=== PATIENT | male | born 1970 | race Caucasian/White ===

== ENCOUNTER 2022-01-22 10:42 | Outpatient (RCR) | payer BC, SELFPAY ==
--- NOTE | 2022-01-22 11:28 | PT.OPEX ---
[facility] Eval PT [facility] Outpatient Eval Start: 01/22/22 07:17 Freq: Status: Active Protocol: Document 01/22/22 11:24 SANDRO (Rec: 01/22/22 11:28 CLAnca [id number]) E-signed By Priscilla Hayes PT Physical Therapy Outpatient Evaluation Insurance Information Insurance Name [employer] Medical Diagnosis BPPV Treating Diagnosis BPPV Referring MD Samira Cho OFFICE ASSISTANT RECEPTIONIST Subjective Subjective Hunter reports having symptoms on Jan 17. I just backed up my truck, I looked down at the floor and tried to pick something up and I felt a weird sensation in my head, like a twirling/twisting. Then I felt completely exhausted. I went to sit down and I looked to the Lt and I felt la twirling sensation and feeling really nauseous. I knew something wasn't right. I went to the clinic. They checked my blood pressure, did an EKG and I had another episode with moving backward, and started sweating. EKG was fine and DX with noted Ny of vertigo. No accident or incident, no changes in medication. 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 Pain Comments NA Vertigo self score (based on 0 -10 scale with 0 being vertigo free) 7/10 when it happened, but 0/10 since Jan 17. Symptom free for the last 5 days Date of Last Physician Visit 01/18/22 Current Work Status Director Business Development Preferred Name [employer] Precautions Treatment Precautions/Contraindications Hernia Therapy Limitations/Systems Review Not Limited Objective Range of Motion CX AROM is WNL Palpation Alar ligament intact Balance & Gait No deviation Assessment Assessment/Impression 51 yo male with DX of BPPV - Vertigo. He denies having any symptoms in the past 5 days. He presents with good CX AROM and normal posture. All visual tracking was normal. Vergence testing was normal. Assessment of carmen post loops were negative for nystagmus or subjective report of vertigo/ dizziness. (-) Dolomite-Hallpike bilateral. We did complete positional maneuver for Rt BPPV (per his reported symptoms it was most likely this region of the vestibular system) with complete absence of Ny or subjective vertigo responces. He will be placed on HOLD for 2 weeks encase symptoms return. In this case we will assess for vestibular canal involvement and he would benefit from continued skilled physical therapy, if so. Thank you for this referral. Plan of Care Rehabilitation Potential Good Physical Therapy Goals 1. Complete an evaluation for vertigo involvement. MET 2. R/o vestibular canals. MET 3. Place client on HOLD status encase symptoms return. It so , new goals will be established at that time. Coordination/Communication With Referral Source Treatment Plan/Direct Interventions Canalith Repositioning,Joint Mobilization,Manual Therapy, Neuromuscular Re-ed,Self-Care/ Home Management,Therapeutic Activities,Therapeutic Exercises Frequency/Duration As of this date, he was symptom free. Only to be seen for this one evaluation and education. Should symptoms return, he may be seen for up to 6 visits. No need to schedule at this time. HOLD for 2 weeks. Patient Will Be Discharged From Therapy Completion of LTG(s),Skills Plateau,Independent w/HEP, Independently Progressing Evaluation Billing Untimed Code Treatment Minutes 27 Complexity Low Certification Information Physician Comment/Change Comment or Changes Physician NPI Number #
== END 2022-02-20 14:27 | disposition home or self-care (01) ==
PROVIDERS: Visit Provider Nurse Practitioner Family
DX: H81.10 Benign paroxysmal vertigo, unspecified ear (principal); Z51.89 Encounter for other specified aftercare
CPT/HCPCS: 97161; 97162